=== PATIENT | female | born 2000 | race Caucasian/White ===

== ENCOUNTER 2025-02-21 10:04 | Emergency (ER) | payer BC, SELFPAY ==
[2025-02-21] VITALS (8 sets, daily range): BP systolic 92–129; BP diastolic 47–69
--- NOTE | 2025-02-21 10:10 | ED.GENMED ---
History of Present Illness
General
Chief Complaint: Fainting/Passed Out
Source: patient
Exam Limitations: none
Time Seen by Provider: 02/21/25 10:10
Nursing documentation reviewed up to this point in time: agreed with
History of Present Illness
History of Present Illness:
Patient is a 24-year-old female 20 weeks sent by [facility] office for syncope. Patient was having a routine [facility] ultrasound and had a syncopal episode. Blood pressure was low 88/43. Patient has a history of vasovagal episode when not
. Patient presents awake alert. She refuses all blood work and reports she has a fear of hospitals blood work excetra.
She reports she feels mildly dizzy. She did not eat today. She arrives drinking fluids. She denies any vaginal bleeding.
she denies any abdominal pain.
Past History
Past History
ED Past Medical History: Psychiatric (Anxiety, ADHD)
ED Past Surgical History: None
Social History
Tobacco: Non-smoker
Alcohol: None
Drug: None
Phy Exam
General Physical Exam
General Presentation: no apparent distress
General age: appears stated age
General Skin: warm and dry
General Habitus: normal
General Mental: alert
General Hydration: appears well hydrated
Cardiovascular Exam
Cardiovascular Exam: regular rate/rhythm, no murmur and normal peripheral pulses
Pulmonary Exam
Pulmonary Exam: lungs clear and no respiratory distress
Gastrointestinal Exam
Gastrointestinal Exam: non tender and soft
Neurological Exam
Neurological Exam: alert and oriented x3
Musculoskeletal Exam
Musculoskeletal Exam: full ROM
Skin Exam
Skin Exam: normal color and warm/dry
Psychiatric Exam
Psychiatric Exam: normal mood/affect
Course
Orders/Labs/Results
Orders:
Orders
02/21/25 10:17
EKG [Electrocardiogram (*1)] Urgent
Reason for Study: Syncope
EKG- Treatment ONCE
02/21/25 13:25
IV Insert/Care/Rem.- Treatment PRN
UA Reflex to Culture [Urinalysis Reflex To Culture] Urgent
Date Specimen was Collected: 02/21/25
Time Specimen was Collected: 16:02
02/21/25 13:26
Urine Culture Urgent
LIZZETH Source: Urine
Specimen Description:
Obtained by: [facility]
Date Specimen was Collected: 02/21/25
Time Specimen was Collected: 16:02
02/21/25 13:55
Lidocaine 2.5%/Prilocaine 2.5% [Emla Cream] 1 gram TOPICAL NOW STA
02/21/25 13:57
Lidocaine 2.5%/Prilocaine 2.5% [Emla Cream] 1 gram TOPICAL NOW STA
02/21/25 14:09
Rubella Urgent
02/21/25 14:10
CBC/With Diff [Complete Blood Count/With Diff] Urgent
Comprehensive Metabolic Panel Urgent
HIV 4th Generation [HIV Combo] Urgent
RPR [Syphilis/T. pallidum Ab Reflex] Urgent
02/21/25 14:59
Add On- LAB Urgent
Tests Added?: cmp
02/21/25 15:02
0.9% Sodium Chloride 1000 ml [Nss] 1,000 ml IV BOLUS
02/21/25 15:24
Add On- LAB Urgent
Tests Added?: cmp
Abnormal Lab Results
02/21/25
14:10
WBC 17.9 H 10^3/uL
(4.8-10.8)
RBC 3.94 L 10^6/uL
(4.20-5.40)
Hgb 11.7 L g/dL
(12.0-16.0)
Hct 34.4 L %
(37.0-47.0)
MPV 10.8 H fL
(7.4-10.4)
Abs Immat Gran (auto) 0.1 H 10^3/uL
(0-0.05)
Absolute Neuts (auto) 16.0 H 10^3/uL
(1.4-6.5)
Immature Gran % 0.6 H %
(0-0.5)
Neutrophils % 89.7 H %
(42.2-75.2)
Lymphocytes % 6.8 L %
(20.5-51.1)
Chloride 110 H mmol/L
(98-107)
Carbon Dioxide 19 L mmol/L
(22-30)
BUN 4 L mg/dl
(7-17)
Creatinine 0.5 L mg/dL
(0.6-1.0)
Glucose 108 H mg/dl
(70-99)
02/21/25 14:10
02/21/25 14:10
Vital Signs
Initial and Last Documented VS:
Initial Vital Signs
Temp Pulse Resp BP Pulse Ox
98.4 F 86 18 100/47 100
02/21/25 10:10 02/21/25 10:10 02/21/25 10:10 02/21/25 10:10 02/21/25 10:10
Last Documented Vital Signs
Temp Pulse Resp BP Pulse Ox
98.4 F 76 13 110/64 99
02/21/25 10:10 02/21/25 11:15 02/21/25 11:00 02/21/25 15:00 02/21/25 15:00
MDM/Problems Addressed
Differential Diagnosis Includes:
Not limited to vasovagal syncope dehydration
MDM/Problems Addressed:
Patient is a 24-year-old female sent by [facility]. She is 20 weeks and passed out during an ultrasound. No fall on injury.
She has a history of syncope with medical procedures /testing in the past prior to . She refused all blood work by medics. Patient presents awake alert. she is anxious however with stable vital signs. She denies any abdominal pain
denies any vaginal bleeding .normal EKG she is not tachycardic on the monitor no shortness of breath or chest pain. She denies any lower extremity swelling.
heart tones obtained at 160s. She has been drinking fluids here in the ER.
Case reviewed with Dr. Patel on-call. She has never had any blood work related to because of her anxiety.
Patient agreeable to getting blood work done here in the ER. we will order OB blood work as well. Dr. Patel did evaluate patient at bedside and recommend labs.
Patient was given fluids however also has been drinking and eating here in the ER. Her vital signs are stable she is not tachycardic. White count mildly elevated likely reactive. No other acute electrolyte abnormalities. Stable for discharge
home
Chronic conditions affecting care:
anxiety over hosptitals/blood work.. etc
*Pulse Oximetry
SaO2: 99
Oxygen Mode of Delivery: Room air
Patient hypoxic: no
*Critical Care Note
Total Time (30-74mins, 75-104mins- exclusive of procedures): Not Applicable
ED Attending Note
-
Portions of this chart may have been created with voice recognition software.� Occasional wrong word or��sound alike� substitutions may have occurred due to the inherent limitations of voice recognition software.
Discharge Plan
Departure
Patient Disposition: Home (Routine Discharge)
Date of Disposition: 02/21/25
Time of Disposition: 16:17
Patient with high blood pressure during this ER visit?: No
Condition: Fair
Covid-19: Not Applicable
Discharge Problem:
Syncope
Prescriptions:
No Action
lorazepam 0.5 MG tablet
0.5 mg PO Q4HPRN PRN (Reason: anxiety)
Referrals:
NONE,* [Family Provider, Internal Medicine]
Samanta Alexis DO [Active, Gynecology]
Activity Restrictions/Additional Instructions:
Be sure to increase fluid intake.
Follow-up with [facility] as scheduled. Return if any worsening of symptoms
Interventions
Interventions:
*Risk Screen - Suicide Last Done: 02/21/25 10:10
*General Assessment Last Done: 02/21/25 10:10
*Neglect/Abuse Screening Last Done: 02/21/25 10:10
*ED COVID-19 Vaccine History Last Done: 02/21/25 10:10
*ED Influenza Vaccine History Last Done: 02/21/25 10:10
[facility] Fall Risk Assessment Tool Last Done: 02/21/25 12:00
ED- Cardiac Assessment Last Done: 02/21/25 12:00
ED- Neurological Assessment Last Done: 02/21/25 12:00
Discharge Date and Time
Print Language: FRENCH
[2025-02-21 14:19] LABS: Hematocrit 34.4 % (37.0-47.0); Hemoglobin 11.7 g/dL (12.0-16.0); Mean Corp Hgb Conc. 34.0 g/dL (33.0-37.0); Mean Corpuscular Volume 87.3 fL (81.0-99.0); Nucleated Red Blood Cells % 0 %; Platelet Count 299 10^3/uL (130-400); Red Cell Dist. Width 14.2 % (11.5-14.5)
--- NOTE | 2025-02-21 14:40 | ED TECH ---
this PCT assisted ACACIA Gomez in placing IV line. Ice pack brought to pt and hand holding given during IV insertion. Gauze wrap loosely placed around IV for pt comfort by this PCT.
[2025-02-21] MEDS: NSS 1000 IV (15:02)
--- NOTE | 2025-02-21 15:03 | EDRN ---
@ 1400 pt allowed rn to place IV with numbing spray. labs drawn and sent.
[2025-02-21 16:07] LABS: ALT (SGPT) 18 U/L (0-35); AST (SGOT) 18 U/L (14-36); Albumin 3.8 g/dl (3.5-5.0); Alkaline Phosphatase 58 U/L (38-126); Blood Urea Nitrogen 4 mg/dl (7-17); Calcium 9.4 mg/dl (8.4-10.2); Carbon Dioxide 19 mmol/L (22-30); Chloride 110 mmol/L (98-107); Glucose 108 mg/dl (70-99); Potassium 4.2 mmol/L (3.5-5.1); Sodium 136 mmol/L (135-145); Total Protein 6.5 g/dl (6.3-8.2); eGFR > 60.00
[2025-02-21 16:39] LABS: Urine Character Clear (Clear)
== END 2025-02-21 16:57 | disposition home or self-care (01) ==
LOC: EMR 10:04
PROVIDERS: Nurse Practitioner; EMERGENCY PHYSICIAN Emergency Medicine
DX: O99.891 Other specified diseases and conditions complicating pregnancy (principal); R55 Syncope and collapse; O99.342 Other mental disorders complicating pregnancy, second trimester; F90.9 Attention-deficit hyperactivity disorder, unspecified type; F41.9 Anxiety disorder, unspecified; Z3A.20 20 weeks gestation of pregnancy
CPT/HCPCS: 99283; 80053; 81003; 85025; 86762; 86780; 87086; 87389; 93005